=== PATIENT | male | born 1940 | race Caucasian/White ===

== ENCOUNTER → 2020-10-22 | Outpatient (CLI) | payer MEDICARE ==
[~2020-10-22] MED LIST: ASPI81TA86 PO; FURO40TA2 PO; HEPA10PFSY IV; INSULANT SC; LANTINJ4 SC; LIPI20TA PO; LISI-898 PO; MAGN400C2 PO; METF10004 PO; OMEP40CA97 PO; PERCOCET PO; SALI0.9I2 IV; TAMS0.4C2 PO; TYLE325T5 PO; VANC1INJ IV; VITA100054 PO; lantus insulin SC
--- NOTE | 2020-10-22 09:20 | REP ---
INDICATION: RT CHRONIC HEEL FOOT ULCER. COMPARISON: None. TECHNIQUE: Right lower extremity arterial Doppler ultrasound. FINDINGS: Ankle brachial index could not be obtained due to patient tolerance and wound issues. Severe plaquing is seen in the right lower extremity arterial tree. There is a mild stenosis in the right profundal. A 2-1 velocity ratio stenosis is seen in the right superficial femoral artery. Biphasic arterial waveforms are noted throughout the right lower extremity except the profundal which is monophasic. Velocity chart right lower extremity arteries: Right SALES PROFESSIONAL BILINGUAL PSV 164 cm/S Profundal 208 Proximal SFA 328/303/210 Mid SFA 89 Distal SFA 109 Popliteal 74 Proximal ROBERT 70 Tibial-peroneal trunk 120 Proximal FINANCIAL RESERVE CLERK 76 Distal FINANCIAL RESERVE CLERK 98 Distal ROBERT 69 IMPRESSION: Atherosclerotic disease as above with mild stenoses in the profundal and superficial femoral artery. <Electronically signed by William Frederick > 10/22/20 0995
== END ==
LOC: M RAD 08:09
PROVIDERS: ATTEND Surgery
DX: I77.1 Stricture of artery (principal); L97.412 Non-pressure chronic ulcer of right heel and midfoot with fat layer exposed

== ENCOUNTER → 2020-11-03 | Outpatient (POV) | payer MEDICARE ==
--- NOTE | 2020-11-05 11:19 | IRCOV ---
[facility] IR Consult Office Visit IR Consult Office Visit DATE: Nov 03, 2020 Patient's and patient agreed to this telephone consultation. I spent 30 minutes reviewing patient's records, imaging and talking to the patient and his . REASON FOR CONSULTATION/CHIEF COMPLAINT: Nonhealing wounds. HISTORY OF PRESENT ILLNESS: 80-year-old male with diabetes, high blood pressure, hyperlipidemia, dementia and prior carotid artery intervention, referred for nonhealing right lower extremity wounds. Patient's is his main carer and offers all of the history. She reports a quarter sized ulcer on the lateral aspect of his right foot which has been there for 4 months. She states he's not a complainer and doesn't complain about it. Patient is nonambulatory. He last walked on his own 2 years ago. He is able to mobilize bed to chair. He sleeps in a bed with his legs elevated. He rubs his legs for discomfort in the night but does not have to hang them over the edge of the bed. He does wake up hourly in the nighttime to pass urine and uses a urinal. She reports his right lower extremity does swell to the knee. He does not use compression stockings. She denies any prior cold leg, gangrene or amputations. 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 He has a left leg prosthesis. He used to smoke 2 packs a day but quit 2 years ago. Patient's states his hemoglobin A1c control is good. He does take aspirin daily. He does get confused during the day and night. Patient's reports patient he has had several TIAs in the past and underwent bilateral carotid artery intervention. Patient denies chest pain, shortness of breath, orthopnea or paroxysmal noc turnal dyspnea. ALLERGIES: Please see below. HOME MEDICATIONS: Please see below. 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 SOCIAL HISTORY: Ex-smoker quit 2 years ago. Used to smoke 2-1/2 packs a day. Denies alcohol or drugs. Lives at home with . is main carer. REVIEW OF SYSTEMS: Otherwise negative. PHYSICAL EXAMINATION: No video on patient side. LABORATORY DATA: None recent. Imaging: I personally reviewed the right lower extremity arterial ultrasound performed October 2020. There is diffuse atherosclerotic disease with a stenosis in the right superficial femoral artery. Biphasic waveform throughout. ASSESSMENT/PLAN: 80-year-old male with all risk factors for peripheral arterial disease with nonhealing right lower extremity wound. I agree patient would benefit from angiography and/or intervention at the same setting if possible. We discussed the risks and benefits of the procedure and patient would like to proceed. We'll schedule the patient for the procedure. Thank you for this referral. Cc Dr. Zamora Allergies Coded Allergies: MS - No Known Drug Allergy (Verified Allergy, Unknown, 02/18/14) Home Medications Scheduled 0.9 % Sodium Chloride (Sodium Chloride), 10 CC IV PICC, (Reported) Aspirin (Aspir 81), 81 MG PO DAILY, (Reported) Atorvastatin Calcium (Lipitor), 20 MG PO DAILY, (Reported) Cholecalciferol (Vitamin D3) (Vitamin D3), 1,000 UNIT PO DAILY, (Reported) Furosemide (Furosemide), 40 MG PO BID, (Reported) Heparin Sodium (Porcine) (Heparin Flush 10 Units/ml Syr), 10 UNITS IV PICC, (Reported) Insulin Glargine (Lantus), 25 UNITS SC QHS, (Reported) Insulin Glargine (Lantus), 15 UNITS SC QAM, (Reported) Lisinopril (Lisinopril), 5 MG PO DAILY, (Reported) Magnesium Oxide (Magnesium), 400 MG PO DAILY, (Reported) Metformin HCl (Metformin HCl), 1,000 MG PO BID, (Reported) Tamsulosin Hcl (Tamsulosin HCl), 0.4 MG PO DAILY, (Reported) Vancomycin HCl in 5 % Dextrose (Vancomycin HCl 1G/200 ml Bag), 1.5 GRAM IV every 24 hours, (Reported) Scheduled PRN Acetaminophen (Tylenol), 650 MG PO Q4HP PRN for TEMP => 100, (Reported) Oxycodone/Acetaminophen (Oxycodone-Acetaminophen 5-325), 1 TAB PO Q4HP PRN for PAIN, (Reported) SHIVA BUSTOS MD Nov 05, 2020 11:19
== END ==
LOC: M TMIRPOV 12:54
PROVIDERS: ATTEND Radiology Diagnostic Radiology
DX: E11.621 Type 2 diabetes mellitus with foot ulcer (principal); E11.22 Type 2 diabetes mellitus with diabetic chronic kidney disease; E11.40 Type 2 diabetes mellitus with diabetic neuropathy, unspecified; E11.59 Type 2 diabetes mellitus with other circulatory complications; I12.9 Hypertensive chronic kidney disease with stage 1 through stage 4 chronic kidney disease, or unspecified chronic kidney disease; I73.9 Peripheral vascular disease, unspecified; E78.5 Hyperlipidemia, unspecified; F03.90 Unspecified dementia, unspecified severity, without behavioral disturbance, psychotic disturbance, mood disturbance, and anxiety; N18.9 Chronic kidney disease, unspecified; Z79.4 Long term (current) use of insulin; Z79.82 Long term (current) use of aspirin; Z79.899 Other long term (current) drug therapy; Z86.73 Personal history of transient ischemic attack (TIA), and cerebral infarction without residual deficits; Z87.891 Personal history of nicotine dependence

== ENCOUNTER → 2020-11-06 | Outpatient (CLI) | payer MEDICARE ==
[~2020-11-06] MED LIST changes: +NOVO1INJ4 SC
== END ==
LOC: M LABSMTC 12:54
PROVIDERS: ATTEND Anesthesiology
DX: Z11.52 Encounter for screening for COVID-19 (principal)

== ENCOUNTER → 2020-11-06 | Outpatient (CLI) | payer MEDICARE | LOC: M LABSMTC 12:48 | PROVIDERS: ATTEND Anesthesiology | DX: Z01.812 Encounter for preprocedural laboratory examination (principal); Z20.822 Contact with and (suspected) exposure to COVID-19 ==

== ENCOUNTER → 2020-11-11 | Outpatient (CLI) | payer MEDICARE ==
[~2020-11-11] MED LIST changes: +ALTEPLASE 2MG/2ML VIAL As Ordered ONE; +HEPARIN SOD (PORCINE) 5000UNITS/ML 1ML VIAL/SYRINGE As Ordered ONE; +ISOVUE-300 61% 50ML VIAL As Ordered ONE; +KETAMINE HCL 200 MG/20 ML VIAL As Ordered ONE; +LIDOCAINE 1% MDV 20ML VIAL As Ordered ONE; +LIDOCAINE 2% INJ 100 MG/5 ML SYRINGE As Ordered ONE; +MIDAZOLAM INJ 2MG/2ML VIAL (J2250 PER 1MG) As Ordered ONE; +NITROGLYCERIN IN D5W 25MG/250ML (100MCG/ML) As Ordered ONE; +ePHEDrine SULFATE 25 MG/5 ML(5MG/ML) SYRINGE As Ordered ONE; +fentaNYL 100 MCG/2 ML INJECTION (J3010) As Ordered ONE; +propofoL 200 MG/20 ML VIAL As Ordered ONE
[2020-11-11 18:45] VITALS: BP 163/67
--- NOTE | 2020-11-12 08:29 | ECGEPIP ---
[facility] Test Date: 2020-11-11 Pat Name: YOLIS SAWYER Department: Room: - Gender: Male Judicial Assistant: socar : 1940 Requested By: SHIVA BUSTOS Order Number: [id number] Reading MD: Roberto Aldana Measurements Intervals [place] Rate: 91 P: 69 WV: 144 QRS: -45 QRSD: 84 T: 53 QT: 356 QTc: 437 Interpretive Statements Normal sinus rhythm Left axis deviation Pulmonary disease pattern NO PRIOR Electronically Signed on 11-12-2020 8:28:33 EST by Roberto Aldana
--- NOTE | 2020-11-12 15:01 | POST-OPPD ---
Postoperative Procedure Note Date Of Procedure: Nov 11, 2020 Time Of Procedure: 16:00 IR Right leg angiogram. IR Right below-knee runoff arteriogram. IR Ultrasound-guided left common femoral artery access. IR Right anterior tibial artery recanalization. IR Right anterior tibial artery angioplasty. IR Moderate sedation. Clinical Information:Nonhealing right lower extremity ulcers. Physician: Dr. Paz. Procedure: The patient was advised of the benefits, risks, and alternatives of the procedure and informed consent was obtained. A time out was performed with verification of the patient's name, MRN, site of procedure, and type of procedure to be performed. The patient was positioned in the supine position on the angiographic table. The site was prepped and draped in the usual sterile fashion. Moderate sedation was performed by the physician including the presence of an independent trained RN, who assisted in monitoring the patient's level of consciousness and physiological status. Following the administration of fentanyl and Versed, the physician spent 120 minutes of continuous [id number] time with the patient. A heat treat puller radiograph reveals no gross abnormality. Ultrasound of the left groin demonstrates patent left common femoral artery. Lidocaine was used for local anesthesia. The left common femoral artery was accessed, under ultrasound guidance with a microintroducer set. A short 0.018" [place] wire was inserted and the needle was exchanged for a 4 Fr microintroducer sheath. The guidewire and dilator were removed and a 0.035" [place] wire was placed into the abdominal aorta. A 6 Fr sheath was placed over the wire, under fluoroscopy guidance. An Omni Flush catheter was advanced over the wire under fluoroscopic guidance and used to catheterize the infrarenal abdominal aorta. A pelvic arteriogram was performed and this demonstrates patent infrarenal abdominal aorta. Patent right common iliac, external and internal iliac artery. Patent right common femoral artery. There is calcified focal atherosclerotic plaque in the common femoral artery which does not impede flow. The catheter and wire were used under fluoroscopy guidance to gain up and over access into the right external iliac artery. The catheter was removed over the wire. A glide cath was advanced over the wire and used under fluoroscopy guidance, to catheterize the right common femoral artery. A right leg angiogram was performed. This demonstrates patent right superficial femoral artery and profunda femoris. Runoff arthrogram further down the right leg was performed and this demonstrates patent mid and distal superficial femoral artery and patent popliteal artery. 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 Patent peroneal artery and posterior tibial artery. Runoff arteriogram to the right foot was performed and this demonstrates patent posterior tibial artery coursing into the right foot supplying calcaneal and plantar branches. Patent peroneal artery to the ankle. Collateral from the peroneal artery to the posterior tibial artery and collateral from the peroneal artery to the distal anterior tibial artery. Microvascular disease in the foot. The catheter was exchanged over the wire for a rubicon catheter. The catheter in conjunction with a glidewire was used under fluoroscopy guidance to catheterize the right anterior tibial artery. Intermittent injection of contrast confirmed intraluminal location. After complete recanalization of right anterior tibial artery with catheter and wire, the catheter was removed over the wire. A 3 x 200 mm [place] balloon was then advanced over the wire under fluoroscopic guidance and positioned in the proximal and mid right anterior tibial artery. Angioplasty was performed. Heparin was administered. The balloon was deflated and repositioned to the mid and distal right anterior tibial artery. Angioplasty was performed. The balloon was deflated. An arteriogram was performed through the catheter positioned in the distal right anterior tibial artery. This demonstrates flow into the right foot and flow in the anterior tibial artery. The catheter was removed [id number]. A follow-up arteriogram was performed through the sheath positioned at the common femoral artery. This demonstrates rapid flow to the below-knee vessels and recanalized proximal anterior tibial artery. But there is spasm in the distal right anterior tibial artery. Preserved flow in the peroneal artery and posterior tibial artery into the foot. The catheter in conjunction with a wire was used under fluoroscopic guidance to catheterize the distal right anterior tibial artery. 100 g of nitroglycerin was administered. Additional heparin was administered. A 3 x 200 mm angioplasty balloon was then advanced over the wire and positioned in the mid and distal right anterior tibial artery, under fluoroscopic guidance. Repeat angioplasty was performed. The balloon was deflated and removed over -the-wire. A catheter was advanced over the wire under fluoroscopic guidance and used to catheterize the proximal anterior tibial artery. A post angioplasty follow-up arteriogram was performed and this demonstrated rapid flow through the reconstructed anterior tibial artery, proximal, mid and distal with no vessel spasm, extravasation or distal emboli. The catheter was retracted to the popliteal artery and a post angioplasty follow-up below-knee runoff arteriogram was performed. This demonstrates preserv ed flow in the peroneal artery and posterior tibial artery with no distal spasm, extravasation, arterial cut off or emboli. The Catheter, wire and sheath were removed, pressure held and hemostasis achieved. A sterile dressing was applied to the site. The patient tolerated the procedure well and was returned to the PRU in stable condition. EBL: < 5 mL. Complications:None. Impression: 1. Right leg angiogram demonstrates patent inflow to the right leg. 2. 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 Patent peroneal artery and posterior tibial artery. 3. Successful recanalization and angioplasty of the entire right anterior tibial artery now with 3 vessel runoff to the right foot. Thank you for this referral. Cc SHIVA Kumar MD Nov 12, 2020 15:00
== END ==
LOC: M SDC 11:07
PROVIDERS: ATTEND Radiology Diagnostic Radiology
DX: I70.235 Atherosclerosis of native arteries of right leg with ulceration of other part of foot (principal); I70.92 Chronic total occlusion of artery of the extremities; E11.621 Type 2 diabetes mellitus with foot ulcer; L97.519 Non-pressure chronic ulcer of other part of right foot with unspecified severity; I11.0 Hypertensive heart disease with heart failure; I50.9 Heart failure, unspecified; E78.5 Hyperlipidemia, unspecified; D64.9 Anemia, unspecified; I69.998 Other sequelae following unspecified cerebrovascular disease; Z79.82 Long term (current) use of aspirin; Z79.899 Other long term (current) drug therapy; F03.90 Unspecified dementia, unspecified severity, without behavioral disturbance, psychotic disturbance, mood disturbance, and anxiety
CPT/HCPCS: 37228; 75630; 75774; 84132; 93005; C1725; C1760; C1769; C1887; C1894; J1644; J2250; J2997; J3010; Q9967

== ENCOUNTER → 2020-11-24 | Outpatient (POV) | payer MEDICARE ==
[~2020-11-24] MED LIST changes: -ALTEPLASE 2MG/2ML VIAL As Ordered ONE; -HEPARIN SOD (PORCINE) 5000UNITS/ML 1ML VIAL/SYRINGE As Ordered ONE; -ISOVUE-300 61% 50ML VIAL As Ordered ONE; -KETAMINE HCL 200 MG/20 ML VIAL As Ordered ONE; -LIDOCAINE 1% MDV 20ML VIAL As Ordered ONE; -LIDOCAINE 2% INJ 100 MG/5 ML SYRINGE As Ordered ONE; -MIDAZOLAM INJ 2MG/2ML VIAL (J2250 PER 1MG) As Ordered ONE; -NITROGLYCERIN IN D5W 25MG/250ML (100MCG/ML) As Ordered ONE; -ePHEDrine SULFATE 25 MG/5 ML(5MG/ML) SYRINGE As Ordered ONE; -fentaNYL 100 MCG/2 ML INJECTION (J3010) As Ordered ONE; -propofoL 200 MG/20 ML VIAL As Ordered ONE
--- NOTE | 2020-11-26 15:12 | IRPN ---
[facility] IR Progress Note IR Progress Note DATE: Nov 24, 2020 Patient and patient's agreed to this telephone follow-up. I spent 5 minutes talking to the patient's . is primary historian for her . Patient has dementia. FOLLOW-UP: Status post right lower extremity angiography and recanalization of the anterior tibial artery. Patient's states that patient reports his leg feels better. No pain. The groin access site is reportedly healed well with no bruising or mass. ON EXAMINATION: No Video on patient side. IMPRESSION: Doing well status post right lower extremity angiography and anterior tibial artery recanalization. Patient reportedly feels better after his improvement in blood flow. Patient to continue with wound care. Thank you for this referral CC Dr. Zamora Allergies Coded Allergies: MS - No Known Drug Allergy (Verified Allergy, Unknown, 02/18/14) SHIVA BUSTOS MD Nov 26, 2020 15:12
== END ==
LOC: M TMIRPOV 08:14
PROVIDERS: ATTEND Radiology Diagnostic Radiology
DX: Z48.812 Encounter for surgical aftercare following surgery on the circulatory system (principal); I70.221 Atherosclerosis of native arteries of extremities with rest pain, right leg

== ENCOUNTER → 2021-02-11 | Outpatient (REF) | payer MEDICARE | LOC: M LAB REF 12:45 | PROVIDERS: ATTEND Physician Assistant | DX: E11.621 Type 2 diabetes mellitus with foot ulcer (principal) ==